=== PATIENT | female | born 1955 | race Caucasian/White ===

== ENCOUNTER 2016-08-27 20:22 | Emergency (ER) | payer OTHER ==
[2016-08-27] MEDS ORDERED: Ondansetron 4 MG/2 ML SDV IVPUSH ONE (20:31)
[2016-08-27] MEDS ORDERED: Ketorolac 30 MG/ML SDV IVPUSH ONE (20:31)
[2016-08-27] MEDS ORDERED: Sodium Chloride 0.9% 1,000 ML IV ONE (20:31)
[2016-08-27] MEDS ORDERED: Sodium Chloride 0.9% 5 ML Syringe FLUSH PRN (20:31)
--- NOTE | 2016-08-27 20:38 | EDM.PDOC ---
ED HPI GENERAL MEDICAL PROBLEM - General Chief Complaint: Abdominal Pain Stated Complaint: ABDOMINAL PAIN Time Seen by Provider: 08/27/16 20:33 Source of Information: Reports: Patient History Limitations: Reports: No Limitations - History of Present Illness INITIAL COMMENTS - FREE TEXT/NARRATIVE: 61 YO WF presents to ER with sudden onset right upper quadrant abdominal pain which began after dinner tonight. Pt reports the pain is band-like and sharp in character. Pt denies any nausea or vomiting. No previous history of gallbladder disease. Pt denies fever/chills Onset: Sudden Duration: Hour(s): (1) Location: Reports: Abdomen Quality: Reports: Sharp Severity: Moderate Improves with: Reports: None Worsens with: Reports: Eating Associated Symptoms: Reports: No Other Symptoms right upper quadrant Pain Score (Numeric/FACES): 10 - Related Data Allergies Allergy/AdvReac Type Severity Reaction Status Date / Time Sulfa (Sulfonamide Allergy Rash Verified 08/27/16 21:01 Antibiotics) Home Meds: Home Meds Alpha Lipoic Acid 1 cap PO DAILY 08/27/16 [History] Ascorbic Acid [Vitamin C] 1 tab PO DAILY 08/27/16 [History] Chromium Amino Acid Chelate [Chromium] 1 tab PO DAILY 08/27/16 [History] DULoxetine [Cymbalta] 30 mg PO Q2D 08/27/16 [History] DULoxetine [Cymbalta] 60 mg PO Q2D 08/27/16 [History] Fluticasone Propionate [24 Hour Allergy Relief] 1 spr INH DAILY PRN 08/27/16 [ History] Hydrocodone/Acetaminophen [Hydrocodon-Acetaminophen 5-325] 1 each PO Q4HR PRN # 10 tablet 08/27/16 [Rx] Levothyroxine [Synthroid] 50 mcg PO DAILY 08/27/16 [History] Magnesium Oxide 1 tab PO DAILY 08/27/16 [History] Multivitamin [Multi-Day Vitamins] 1 tab PO DAILY 08/27/16 [History] [place]-3/DHA/Epa/Fish Oil [[place]-3 Fish Oil 1,000 MG Sfgl] 1,000 mg PO DAILY 10/06 [History] Ondansetron [Zofran ODT] 4 mg PO Q6H PRN #5 tab.dis 08/27/16 [Rx] Zolpidem Tartrate [Zolpidem Tartrate] 5 mg PO BEDTIME 08/27/16 [History] ED ROS GENERAL - Review of Systems Review Of Systems: See Below Constitutional: Reports: No Symptoms HEENT: Reports: No Symptoms Respiratory: Reports: No Symptoms Cardiovascular: Reports: No Symptoms Endocrine: Reports: No Symptoms GI/Abdominal: Reports: Abdominal Pain : Reports: No Symptoms Musculoskeletal: Reports: No Symptoms Skin: Reports: No Symptoms Neurological: Reports: No Symptoms Psychiatric: Reports: No Symptoms Hematologic/Lymphatic: Reports: No Symptoms Immunologic: Reports: No Symptoms ED EXAM, GI/ABD - Physical Exam Exam: See Below Exam Limited By: No Limitations General Appearance: Alert, WD/WN, Mild Distress Neck: Normal Inspection, Supple, Non-Tender, Full Range of Motion Respiratory/Chest: No Respiratory Distress, Lungs Clear, Normal Breath Sounds, No Accessory Muscle Use, Chest Non-Tender Cardiovascular: Normal Peripheral Pulses, Regular Rate, Rhythm, No Edema, No Gallop, No JVD, No Murmur, No Rub GI/Abdominal: Normal Bowel Sounds, Soft, No Organomegaly, No Distention, No Mass , Tenderness (RUQ), Wilson's Sign Back Exam: Normal Inspection, Full Range of Motion, NT Extremities: Normal Inspection, Normal Range of Motion, Non-Tender, Normal Capillary Refill, No Pedal Edema Neurological: Alert, Oriented, CN II-XII Intact, Normal Cognition, Normal Gait, Normal Reflexes, No Motor/Sensory Deficits Psychiatric: Normal Affect, Normal Mood Skin Exam: Warm, Dry, Intact, Normal Color, No Rash Lymphatic: No Adenopathy Course - Vital Signs Last Recorded V/S: Last Vital Signs Temp 36.9 C 08/27/16 21:07 Pulse 76 08/27/16 21:07 Resp 20 08/27/16 21:07 BP 146/76 H 08/27/16 21:07 Pulse Ox 96 08/27/16 21:07 - Orders/Labs/Meds Orders: Active Orders 24 hr Category Date Time Status Peripheral IV Care [RC] . DIRECTED Care 08/27/16 20:32 Active UA W/MICROSCOPIC [URIN] Stat Lab 08/27/16 20:31 Uncollected Acetaminophen/HYDROcodone [Hay 325-5 MG] Med 08/27/16 21:20 Active 1 tab PO Q6H PRN Ondansetron [Zofran ODT] Med 08/27/16 21:20 Active 4 mg PO Q8H PRN Sodium Chloride 0.9% [Syrex Flush] Med 08/27/16 20:31 Active 5 ml FLUSH Q8HR PRN Peripheral IV Insertion Adult [OM.PC] Routine Oth 08/27/16 20:31 Ordered Medication Orders Hydrocodone Bitart/Acetaminophen (Hay 325-5 Mg) 1 tab PO Q6H PRN PRN Reason: Pain Stop: 08/28/16 21:21 Ondansetron HCl (Zofran Odt) 4 mg PO Q8H PRN PRN Reason: Nausea/Vomiting Stop: 08/29/16 05:21 Sodium Chloride (Syrex Flush) 5 ml FLUSH Q8HR PRN PRN Reason: Keep Vein Open Labs: Laboratory Tests 08/27/16 08/27/16 Range/Units 20:45 20:45 WBC 13.1 H (5.0-10.0) 10^3/uL RBC 5.12 (3.80-5.50) 10^6/uL Hgb 14.6 (12.0-16.0) g/dL Hct 43.9 (37.0-47.0) % MCV 85.9 (82.0-92.0) fL MCH 28.5 (27.0-31.0) pg MCHC 33.2 (32.0-36.0) g/dL RDW 13.8 (11.5-14.5) % Plt Count 338 H (150-300) 10^3/uL MPV 7.1 L (7.4-10.4) fL Neut % (Auto) 72.4 H (50.0-70.0) % Lymph % (Auto) 21.5 (20.0-40.0) % [place] % (Auto) 3.8 (2.0-8.0) % Eos % (Auto) 1.9 (1.0-3.0) % Baso % (Auto) 0.4 (0.0-1.0) % Neut # (Auto) 9.5 H (2.5-7.0) 10^3/uL Lymph # (Auto) 2.8 (1.0-4.0) 10^3/uL [facility] # (Auto) 0.5 (0.1-0.8) 10^3/uL Eos # (Auto) 0.2 (0.1-0.3) 10^3/uL Baso # (Auto) 0.1 (0.0-0.1) 10^3/uL Sodium 142 (136-145) mmol/L Potassium 4.4 (3.3-5.3) mmol/L Chloride 105 (98-115) mmol/L Carbon Dioxide 27.8 (21.0-32.0) mmol/L BUN 18 (6-25) mg/dL Creatinine 0.72 (0.51-1.17) mg/dL Est Cr Clr Drug Dosing 71.75 mL/min Estimated GFR (MDRD) > 60 mL/min Glucose 178 H (70-110) mg/dL Calcium 9.6 (8.7-10.3) mg/dL Total Bilirubin 0.3 (0.2-1.0) mg/dL AST 15 (15-37) U/L ALT 28 (12-78) U/L Alkaline Phosphatase 100 (46-116) IU/L Total Protein 8.4 H (6.4-8.2) g/dL Albumin 4.08 (3.00-4.80) g/dL Lipase 306 (73-393) U/L Meds: Medications Generic Name Dose Route Start Last Admin Trade Name Freq PRN Reason Stop Dose Admin Hydrocodone Bitart/Acetaminophen 1 tab 08/27/16 21:20 Hay 325-5 Mg PO 08/28/16 21:21 Q6H PRN Pain Ondansetron HCl 4 mg 08/27/16 21:20 Zofran Odt PO 08/29/16 05:21 Q8H PRN Nausea/Vomiting Sodium Chloride 5 ml 08/27/16 20:31 Syrex Flush FLUSH Q8HR PRN Keep Vein Open Discontinued Medications Generic Name Dose Route Start Last Admin Trade Name Freq PRN Reason Stop Dose Admin Hydromorphone HCl 1 mg 08/27/16 21:15 08/27/16 21:22 Dilaudid IVPUSH 08/27/16 21:16 1 mg ONETIME ONE Administration Sodium Chloride 1,000 mls @ 999 mls/hr 08/27/16 20:31 08/27/16 20:59 Normal Saline IV 08/27/16 21:31 999 mls/hr .BOLUS ONE Administration Ketorolac Tromethamine 30 mg 08/27/16 20:31 08/27/16 20:58 Toradol IVPUSH 08/27/16 20:32 30 mg ONETIME ONE Administration Ondansetron HCl 4 mg 08/27/16 20:31 08/27/16 20:59 Zofran IVPUSH 08/27/16 20:32 4 mg ONETIME ONE Administration Departure - Departure Time of Disposition: 21:18 Disposition: Home, Self-Care 01 Condition: fair Clinical Impression: Cholelithiasis Qualifiers: Cholelithiasis location: gallbladder Cholecystitis acuity: acute Biliary obstruction: without biliary obstruction - Discharge Information Prescriptions: Hydrocodone/Acetaminophen [Hydrocodon-Acetaminophen 5-325] 1 each PO Q4HR PRN # 10 tablet PRN Reason: Pain Ondansetron [Zofran ODT] 4 mg PO Q6H PRN #5 tab.dis PRN Reason: Vomiting Instructions: Pain Medicine Instructions, Ielc-hm-Dvmy, Cholelithiasis Referrals: Hao Adams MD [Primary Care Provider] - - My Orders Last 24 Hours: My Active Orders 08/27/16 20:31 UA W/MICROSCOPIC [URIN] Stat Sodium Chloride 0.9% [Syrex Flush] 5 ml FLUSH Q8HR PRN Peripheral IV Insertion Adult [OM.PC] Routine 08/27/16 20:32 Peripheral IV Care [RC] . DIRECTED 08/27/16 21:20 Acetaminophen/HYDROcodone [Hay 325-5 MG] 1 tab PO Q6H PRN Ondansetron [Zofran ODT] 4 mg PO Q8H PRN - Assessment/Plan Last 24 Hours: My Active Orders 08/27/16 20:31 UA W/MICROSCOPIC [URIN] Stat Sodium Chloride 0.9% [Syrex Flush] 5 ml FLUSH Q8HR PRN Peripheral IV Insertion Adult [OM.PC] Routine 08/27/16 20:32 Peripheral IV Care [RC] . DIRECTED 08/27/16 21:20 Acetaminophen/HYDROcodone [Hay 325-5 MG] 1 tab PO Q6H PRN Ondansetron [Zofran ODT] 4 mg PO Q8H PRN Assessment:: 1. cholelithiasis 2. abdominal pain Plan: 1. lortab 5/325 PO Q4-6 PRN pain #15 2. zofran 4mg SL Q6 hours PRN 3. follow up with Dr Marilynn Adams for outpatient ultrasound 4. return to ER for worsening symptoms 5. discharge home
[2016-08-27 21:08] VITALS: BP 146/76
[2016-08-27 21:13] LABS: CHLORIDE,CL 105 mmol/L (98-115); SODIUM,NA 142 mmol/L (136-145)
[2016-08-27] MEDS ORDERED: HYDROmorphone 1 MG/ML Syringe IVPUSH ONE (21:15)
[2016-08-27] MEDS ORDERED: Ondansetron 4 MG Tab.DIS PO PRN (21:20)
[2016-08-27] MEDS ORDERED: Acetaminophen/HYDROcodone 325-5 MG Tab PO PRN (21:20)
== END 2016-08-27 22:00 | disposition home or self-care (01) ==
LOC: KA.ED 20:22
DX: K80.20 Calculus of gallbladder without cholecystitis without obstruction (principal); Z88.2 Allergy status to sulfonamides; Z79.899 Other long term (current) drug therapy
CPT/HCPCS: 36415; 80053; 83690; 85025; 96361; 96374; 96375; 99284; A9270; J1170; J1885; J2405; J7030

== ENCOUNTER 2016-09-29 07:10 | Day surgery (SDC) | payer OTHER ==
[~2016-09-29 07:10] MED LIST: Bupivacaine 0.5%/EPINEPHrine 1:200,000 30 ML SDV ONE; Dexamethasone 4 MG/ML SDV IV ONE; Dexamethasone 4 MG/ML SDV ONE; Lactated Ringers 1,000 ML IV SCH; Lactated Ringers 1,000 ML ONE; Midazolam 1 MG/ML 2 ML SDV ONE; Neostigmine Methylsulfate 10 MG/10 ML MDV ONE; Propofol 200 MG/20 ML SDV ONE; Scopolamine 1.5 MG Transdermal Patch ONE; Sodium Chloride 0.9% 5 ML Syringe FLUSH PRN; ceFAZolin 1 GM Vial ONE; fentaNYL 250 MCG/5 ML SDV ONE
[2016-09-29] MEDS ORDERED: EPINEPHrine 1:10,000 1 MG/10 ML Syringe ONE (07:58)
[2016-09-29] MEDS ORDERED: fentaNYL 250 MCG/5 ML SDV ONE (08:03)
[2016-09-29] MEDS ORDERED: Ondansetron 4 MG/2 ML SDV IV ONE (08:15)
[2016-09-29] MEDS ORDERED: Dexamethasone 4 MG/ML 5 ML MDV IV ONE (08:15)
[2016-09-29] MEDS ORDERED: fentaNYL 250 MCG/5 ML SDV IV ONE (08:15)
[2016-09-29] MEDS ORDERED: Succinylcholine 200 MG/10 ML MDV IV ONE (08:15)
[2016-09-29] MEDS ORDERED: Scopolamine 1.5 MG Transdermal Patch TOP ONE (08:15)
[2016-09-29] MEDS ORDERED: Propofol 200 MG/20 ML SDV IV ONE (08:15)
[2016-09-29] MEDS ORDERED: Ketorolac 30 MG/ML SDV IVPUSH ONE (08:15)
[2016-09-29] MEDS ORDERED: Rocuronium 50 MG/5 ML Vial IV ONE (08:15)
[2016-09-29] MEDS ORDERED: Neostigmine Methylsulfate 10 MG/10 ML MDV IV ONE (08:15)
[2016-09-29] MEDS ORDERED: ceFAZolin 1 GM Vial IV ONE (08:15)
[2016-09-29] MEDS ORDERED: Midazolam 1 MG/ML 2 ML SDV IV ONE (08:15)
[2016-09-29] MEDS ORDERED: Bupivacaine 0.5%/EPINEPHrine 1:200,000 30 ML SDV INFILT ONE ×2 (09:01)
[2016-09-29] MEDS ORDERED: ceFAZolin 1 GM Vial ONE (09:02)
[2016-09-29] MEDS ORDERED: Sodium Chloride 0.9% 20 ML SDV ONE (09:03)
[2016-09-29] MEDS ORDERED: Ketorolac 30 MG/ML SDV ONE (09:35)
[2016-09-29] MEDS ORDERED: Bupivacaine 0.5%/EPINEPHrine 1:200,000 30 ML SDV ONE (09:41)
[2016-09-29] MEDS ORDERED: Morphine 4 MG/ML Syringe IVPUSH PRN (10:28)
[2016-09-29] MEDS ORDERED: Ondansetron 4 MG/2 ML SDV IVPUSH PRN (10:28)
[2016-09-29] MEDS ORDERED: Morphine 2 MG/ML Syringe IVPUSH PRN (10:29)
[2016-09-29] MEDS ORDERED: fentaNYL 100 MCG/2 ML SDV IVPUSH PRN (10:29)
--- NOTE | 2016-09-29 11:22 | PCM.OPNOTE ---
[id number] cholecystectomy Findings: Moderately inflamed and adhesed gallbladder found at laparoscopy. Pre Op Diagnosis: Chronic cholecystitis and cholelithiasis Post-Op Diagnosis: As above Anesthesia Technique: General ET tube Primary Surgeon: Hao Adams Complications: None Condition: Good Free Text/Narrative:: INFORMED CONSENT: This patient is here today because of chronic cholecystitis and cholelithiasis. The operative procedure is laparoscopic cholecystectomy. The operative procedure and risks were discussed including all possible complications including infection, pain, bleeding, bile duct injury, internal organ injury, conversion to open procedure, reoperation, PE, . Anesthetic complications were handled by INSTRUCTIONAL MATERIALS DIRECTOR. The patient understands well and wishes to proceed. OPERATION PERFORMED: Laparoscopic cholecystectomy. PROCEDURE: The patient was kept in the supine position and a satisfactory general anesthetic was administered via endotracheal tube. The abdomen was thoroughly prepped and draped in the usual fashion. The supraumbilical fold was infiltrated with 1 mL of Marcaine 0.5% and a curvilinear incision was made. The incision was deepened through the subcutaneous tissue until we came down upon the fascial layer. We then held the fascial layer with two Gino clamps and then introduced a Verre's needle directly into the abdominal cavity. The position of the needle was ascertained by the aspiration of a small quantity of air, free flow of saline, negative aspiration of blood. We then instilled CO2 gas into the abdominal cavity and developed an abdominal pressure of approximately 15 mm/Hg. At this point we removed the Verre's needle and reintroduced it over a sheath. This was followed by a 5/12.5 trocar and a camera. Inspection revealed a chronically inflamed gallbladder with some omental adhesions. The omental pad was quite thick. The rest of the abdominal contents were normal to visualization. Two 5 mm trocars were placed in the right hypochondriac region, one in the right midclavicular and the second on the anterior clavicle line and a third 11.5 trocar was inserted in the subxiphoid position under direct vision. The patient was then kept in the reverse Trendelenburg position with a slight tilt to the left side. The two ratchets were placed one on the fundus and one at the neck of the gallbladder. The transverse colon was obstructing the field of vision at the nicholas hepatis and therefore a Endo retractor was placed through a separate port inferior to the hypogastric port. Dissection was begun at the neck of the gallbladder and the fat in this area was quite immense. We carefully dissected out the cystic artery and cystic duct separately and encircled both structures at approximately 1 to 1-1/2 cm. The critical view of Strass[place] was obtained. We ligated each structure separately using endo clips. When ligating the cystic duct we made sure not to encroach upon the common duct in any way. We then used a hook cautery and gently dissected the gallbladder off its bed. The base gallbladder fossa was gently cauterized for additional hemostasis. The gallbladder was retrieved through the umbilical port. The nicholas hepatis was thoroughly irrigated with normal saline, most of which was aspirated out. The abdomen was then slowly deflated and prior to removal of the last trocar we completely deflated the abdomen. The trocar sites were washed with Betadine solution and the fascial layer was closed with 0 Polysorb and the skin was closed using 4.0 Polysorb in a subcuticular fashion. We then instilled approximately 20 mL of Marcaine 0.5% with epinephrine between the four sites. Sterile pressure dressings were applied. The patient tolerated the procedure well. There were no operative complications. Sponge, needle, and instrument count were correct. Intake & Output 09/28/16 09/29/16 09/29/16 22:59 06:59 14:59 Intake Total 1500 Balance 1500
[2016-09-29] MEDS ORDERED: Acetaminophen/HYDROcodone 325-5 MG Tab PO ONE (13:08)
[2016-09-29 15:58] VITALS: BP 145/68
== END 2016-09-29 15:30 | disposition home or self-care (01) ==
LOC: KA.SDS 07:10
PROVIDERS: ATTEND Family Medicine
DX: K80.10 Calculus of gallbladder with chronic cholecystitis without obstruction (principal); E03.9 Hypothyroidism, unspecified; G47.30 Sleep apnea, unspecified; E55.9 Vitamin D deficiency, unspecified; E78.00 Pure hypercholesterolemia, unspecified; F33.41 Major depressive disorder, recurrent, in partial remission; E66.9 Obesity, unspecified; Z88.1 Allergy status to other antibiotic agents; Z88.2 Allergy status to sulfonamides; Z79.899 Other long term (current) drug therapy; Z68.41 Body mass index [BMI] 40.0-44.9, adult
CPT/HCPCS: 47562; A9270; J0330; J0690; J1100; J1885; J2250; J2405; J2704; J2710; J3010; J7120; J3490